=== PATIENT | male | born 1980 | race African-American/Black ===

== ENCOUNTER → 2020-10-31 | Outpatient (CLI) | payer BC ==
--- NOTE | 2020-10-31 09:57 | KCIC ---
EXAMINATION: CT ABDOMEN+PELVIS WO (CT ABDOMEN/PELVIS WITHOUT IV CONTRAST) CLINICAL HISTORY: LLQ pain, microscopic hematuria. Pain x3 weeks. TECHNIQUE: Non-IV contrast imaging of the abdomen and pelvis was performed using standard technique, scanning from just above the dome of the diaphragm to the symphysis pubis. Unenhanced imaging is pulido ited for the evaluation of some intra-abdominal and pelvic pathology. CT Dose Reduction Employed: One or more of the following individualized dose reduction techniques wer e utilized for this examination: 1. Automated exposure control 2. Adjustment of the mA and/or kV ac cording to patient size 3. Use of iterative reconstruction technique. FINDINGS: Partially visualized heart and lung bases unremarkable. Liver, minimally distended gallbladder, pancreas, spleen, and adrenal glands unremarkable. Limited evaluation of the unenhanced kidneys unremarkable. No urinary calculi visualized or evidence of obstructive uropathy. Minimally filled urinary bladder suboptimally evaluated. Punctate prostatic calcification. No dilated bowel. Appendix not definitively visualized. No abdominal aortic or iliac artery aneurysm. Multiple prominent but nonenlarged mesenteric lymph nod es. Multilevel degenerative changes in the thoracic spine. IMPRESSION: No evidence of acute abdominopelvic abnormality. No urolithiasis or evidence of obstructive uropathy. Limited evaluation of the unenhanced kidneys unremarkable. If concern for renal mass, recommend nonem ergent renal ultrasound and/or renal CT/MRI with intravenous contrast for further evaluation. Electronically signed by: Kendall Reagan DO (10/31/2020 9:54 AM) [id number]
== END ==
LOC: KCIC CT 08:51
PROVIDERS: ATTEND Family Medicine
DX: R10.32 Left lower quadrant pain (principal); R31.9 Hematuria, unspecified; M47.814 Spondylosis without myelopathy or radiculopathy, thoracic region
CPT/HCPCS: 74176

== ENCOUNTER → 2020-11-28 | Outpatient (CLI) | payer BC ==
--- NOTE | 2020-11-28 09:48 | RAD ---
EXAMINATION: CT ABDOMEN+PELVIS WO (CT ABDOMEN/PELVIS WITHOUT IV CONTRAST) CLINICAL HISTORY: Left flank pain TECHNIQUE: Non-IV contrast imaging of the abdomen and pelvis was performed using standard technique, scanning from just above the dome of the diaphragm to the symphysis pubis. Unenhanced imaging is pulido ited for the evaluation of some intra-abdominal and pelvic pathology. CT Dose Reduction Employed: One or more of the following individualized dose reduction techniques wer e utilized for this examination: 1. Automated exposure control 2. Adjustment of the mA and/or kV ac cording to patient size 3. Use of iterative reconstruction technique. COMPARISON: 10/31/2020 FINDINGS: Partially visualized heart and lung bases unremarkable. Liver, minimally distended gallbladder, pancreas, spleen, and adrenal glands unremarkable. Limited evaluation of the unenhanced kidneys unremarkable. No urinary calculi visualized or evidence of obstructive uropathy. Minimally filled urinary bladder suboptimally evaluated. Punctate prostatic calcifications. No dilated bowel. Increased stool throughout the colon. Appendix not definitively visualized. No abdominal aortic or iliac artery aneurysm. Multiple prominent but nonenlarged mesenteric lymph nod es. Multilevel degenerative changes of the thoracic spine. IMPRESSION: No evidence of acute abdominopelvic abnormality or significant interval change. No urolithiasis or evidence of obstructive uropathy. Electronically signed by: Kendall Reagan DO (11/28/2020 9:46 AM) [id number]
== END ==
LOC: CT 09:46
PROVIDERS: ATTEND Family Medicine
DX: K82.8 Other specified diseases of gallbladder (principal); M47.814 Spondylosis without myelopathy or radiculopathy, thoracic region; R10.9 Unspecified abdominal pain
CPT/HCPCS: 74176

== ENCOUNTER → 2022-01-22 | Outpatient (CLI) | payer BC ==
--- NOTE | 2022-01-22 08:38 | KCIC ---
EXAM: Abdomen and pelvis CT without intravenous contrast. HISTORY: Left flank pain. Microscopic hematuria. TECHNIQUE: Computed tomographic images of the abdomen and pelvis were obtained without contrast. Mult iplanar reformatting was performed. *One or more of the following individualized dose reduction techniques were utilized for this examina tion: 1. Automated exposure control. 2. Adjustment of the mA and/or kV according to patient size. 3. Use of iterative reconstruction technique. COMPARISON: 11/28/2020. FINDINGS: Evaluation of the lower thorax is unremarkable. There is hepatic steatosis. No suspicious h epatic lesion is seen. The gallbladder, pancreas, spleen and adrenal glands are unremarkable. There i s no nephroureterolithiasis. No renal lesion is seen on this noncontrast exam. The bladder is nearly empty. There is no bowel obstruction. There is no abnormal bowel wall thickening. The aorta is normal in simone iber. There is no lymphadenopathy. There is no acute or suspicious osseous finding. There is degenera tive change of the lower thoracic and lumbar levels. IMPRESSION: 1. Hepatic steatosis. 2. No evidence of nephroureterolithiasis or hydronephrosis. CT urography may be useful to assess for an occult urothelial lesion given a history of microscopic hematuria. Electronically signed by: Apryl Benton MD (01/22/2022 8:35 AM) [facility]
== END ==
LOC: KCIC CT 08:04
PROVIDERS: ATTEND Family Medicine
DX: K76.0 Fatty (change of) liver, not elsewhere classified (principal); M47.814 Spondylosis without myelopathy or radiculopathy, thoracic region; M47.816 Spondylosis without myelopathy or radiculopathy, lumbar region; R31.29 Other microscopic hematuria; R35.0 Frequency of micturition
CPT/HCPCS: 74176